=== PATIENT | male | born 1950 | race Caucasian/White ===

== ENCOUNTER → 2023-06-10 13:26 | Outpatient (REF) | payer MEDICARE, SELFPAY ==
[2023-06-10 16:39] LABS: PSA, Total - Diagnostic < 0.06 ng/ml (0.0-4.0)
== END ==
LOC: REG 13:26
PROVIDERS: ATTENDING PHYSICIAN Specialist; FAMILY PHYSICIAN Family Medicine
DX: C61 Malignant neoplasm of prostate (principal)
CPT/HCPCS: 36415; 84153

== ENCOUNTER 2023-07-04 13:59 | Outpatient (RCR) | payer MEDICARE, SELFPAY | END 2023-07-04 23:59 | disposition home or self-care (01) | LOC: RPT 13:59 | PROVIDERS: ATTENDING PHYSICIAN Specialist; FAMILY PHYSICIAN Family Medicine | DX: C61 Malignant neoplasm of prostate (principal); N39.3 Stress incontinence (female) (male); R15.9 Full incontinence of feces; R39.15 Urgency of urination; Z73.6 Limitation of activities due to disability; R15.2 Fecal urgency | CPT/HCPCS: 97162; 97530 ==

== ENCOUNTER 2023-08-14 13:43 | Outpatient (RCR) | payer MEDICARE, SELFPAY | END 2023-08-14 23:59 | disposition home or self-care (01) | LOC: RPT 13:43 | PROVIDERS: ATTENDING PHYSICIAN Specialist; FAMILY PHYSICIAN Family Medicine | DX: N39.3 Stress incontinence (female) (male) (principal); N15.9 Renal tubulo-interstitial disease, unspecified; R15.2 Fecal urgency | CPT/HCPCS: 97112; 97530 ==

== ENCOUNTER 2023-09-27 13:51 | Outpatient (RCR) | payer MEDICARE, SELFPAY | END 2023-09-27 23:59 | disposition home or self-care (01) | LOC: RPT 13:51 | PROVIDERS: ATTENDING PHYSICIAN Specialist; FAMILY PHYSICIAN Family Medicine | DX: N39.46 Mixed incontinence (principal); R15.2 Fecal urgency; C61 Malignant neoplasm of prostate | CPT/HCPCS: 97140; 97530 ==

== ENCOUNTER → 2023-10-16 17:52 | Outpatient (REF) | payer MEDICARE, SELFPAY ==
[2023-10-19 07:06] LABS: HPV, High Risk Not Detected; HPV, High Risk Source Anal
== END ==
LOC: OLAB 17:52
PROVIDERS: ATTENDING PHYSICIAN Physician Assistant
DX: A63.0 Anogenital (venereal) warts (principal)
CPT/HCPCS: 87624; 88112

== ENCOUNTER → 2023-10-18 07:09 | Outpatient (REF) | payer MEDICARE, SELFPAY ==
[2023-10-18 09:41] VITALS: BMI 25.4
== END ==
LOC: SDSPAT 07:09
PROVIDERS: ATTENDING PHYSICIAN Surgery; FAMILY PHYSICIAN Family Medicine
DX: K64.2 Third degree hemorrhoids (principal)
CPT/HCPCS: 93005

== ENCOUNTER 2023-10-21 06:40 | Day surgery (SDC) | payer MEDICARE, SELFPAY ==
[2023-10-21 12:04] VITALS: BP 118/73
[2023-10-21 12:13] VITALS: BMI 25.4
[2023-10-21 12:14] VITALS: BMI 25.4
[2023-10-21 12:22] LABS: Glucose - Point of Care 133 mg/dl (70-99)
[2023-10-21] MEDS: NORMOSOL-R 1000 IV (12:23)
[2023-10-21 14:03] VITALS: BP 102/50
--- NOTE | 2023-10-21 14:09 | W.IMMPOSTOP ---
Surgical Immed Post Op Note
-
Primary Surgeon: Zain Woodson MD
Assisting Surgeon: None
Pre-op Diagnosis: Prolapsing internal hemorrhoid
Post-op Diagnosis: Prolapsing internal hemorrhoid, irritated internal hemorrhoids x 2
Procedure Performed: Closed hemorrhoidectomy, suture hemorrhoidopexy x 2, bilateral pudendal nerve block
Anesthesia Type: MAC with local
Specimen / Cultures: Internal hemorrhoid
Estimated Blood Loss: 10 mL
Complications: None
Operative Findings: Prolapsing internal hemorrhoid in the left posterolateral position�performed surgical excision in a closed fashion, small irritated hemorrhoid in the right anterior position and right anteromedial position�performed suture
ligation and hemorrhoidopexy; on check for hemostasis, slight oozing from the left posterolateral pedicle that was controlled with 3-0 Vicryl in figure of 8 fashion; performed bilateral pudendal nerve block and placed Surgicel within the anal canal;
dressed with gauze and silk tape
--- NOTE | 2023-10-21 14:12 | OR.RPT ---
Operative Report
Operative Report
DATE OF OPERATION: 10/21/2023
SURGEON: Zain Woodson MD
PREOPERATIVE DIAGNOSIS: Prolapsing internal hemorrhoid, irritated internal hemorrhoids x 2
POSTOPERATIVE DIAGNOSIS: Same
OPERATION: Exam under anesthesia, closed hemorrhoidectomy, suture hemorrhoidopexy x2, bilateral pudendal nerve block
ASSISTANTS:
1. None
ANESTHESIA: MAC w/ local
ESTIMATED BLOOD LOSS: 10 mL
FINDINGS:
1. Left posterolateral moderate-sized prolapsing hemorrhoid, performed surgical excision
2. Right anterior and right anteromedial small internal hemorrhoids, performed suture ligation with hemorrhoidopexy
SPECIMENS:
1. Internal hemorrhoid
DRAINS: None
COMPLICATIONS: None
INDICATIONS: The patient is a 73-year-old male who was seen by my PA Janine and myself in the office for rectal bleeding. There was a clear prolapsing hemorrhoid with some superficial changes, likely related to chronic prolapse, but could not rule
out atypia. The hemorrhoid was prolapsed on initial evaluation. It was reducible but then re-prolapsed. Therefore, rubber band ligation would unlikely help. For these reasons, I recommended surgery. I explained that my plan is to perform an
excisional hemorrhoidectomy for the internal hemorrhoid of concern. I may also perform a hemorrhoidopexy or hemorrhoid ligation if the hemorrhoid appears amenable, or if I identify any other concerning internal hemorrhoids. The operation was
discussed with the patient in detail, including the risks, benefits and alternatives. Risks described included, but not limited to, bleeding, infection, urinary retention, damage to nearby structures such as the anal sphincter, fecal incontinence,
anal stenosis, recurrence, and anesthetic risks. The patient states that he does have some fecal urgency with fecal leakage at baseline. I explained that there is the risk of this getting worse. The patient understood and agreed to proceed. The
consent was signed and placed in the chart.
PROCEDURE IN DETAIL: The patient was taken to the operating room and placed on the operating table in prone position. Sequential compression devices were placed bilaterally. Sedation was commenced without complication. Two seat belts were secured
around the legs and upper back. The buttocks were taped apart. The perineum was shaved, prepped and draped in the usual fashion. A time-out was then performed verifying the correct patient, procedure, operative site, positioning, and special
equipment.
Local anesthesia used was a mixture of 60 mL of 0.25% Marcaine without epinephrine (with epinephrine was on backorder) and 0.6 mg of dexamethasone. 40 mL was injected perianally at the beginning of the case. The anorectal exam was performed
assessing all four quadrants of the anal canal using Hill-Vazquez retractors in progressively increasing size. In the left posterolateral quadrant, the prolapsing internal hemorrhoid was identified. This was irritated and oozed with manipulation.
There were also 2 small internal hemorrhoids that appeared irritated but were not bleeding in the right anterior and right anteromedial position. There was a skin tag noted in the anterior midline. No other concerning pathology or lesions were
noted.
I proceeded with an excisional hemorrhoidectomy for the left posterolateral hemorrhoid. I began by grasping the hemorrhoid with 3 clamps and elevating it. The anoderm was incised immediately around the distal aspect of the hemorrhoid. Hemostasis
was achieved with electrocautery. Using Metzenbaum scissors, the hemorrhoid was carefully dissected off of the sphincter complex, avoiding injury to it. A large curved clamp was placed under the hemorrhoid, taking care to avoid clamping any
sphincter. A 15 blade was used to excise the hemorrhoid off the clamp. The hemorrhoid was passed off for specimen. A 3-0 Vicryl was then thrown around the pedicle and tied down, leaving a long tail. The mucosa was reapproximated using this 3-0
Vicryl in a running fashion to the level of the dentate line. This was then run back to the pedicle in a locking fashion. The 3-0 Vicryl was then tied down to the tail around the pedicle, ligating it an additional time. Another 3-0 Vicryl was
used to close the defect of the anoderm in a running fashion. Hemostasis was confirmed.
I elected to proceed with suture ligation and hemorrhoidopexy for the right anterior and right anteromedial hemorrhoids. Using a Hill-Vazquez retractor, the hemorrhoid was exposed. I ligated the pedicle of the hemorrhoid with a 3-0 Vicryl in a
figure-of-8 fashion, leaving the tail long. I took running mucosal bites of the hemorrhoid distally toward the dentate line, stopping 1 cm above the dentate line. I tied this down to the long tail in order to pexy the hemorrhoid. Hemostasis was
confirmed. The second internal hemorrhoid was ligated and pexied in a similar fashion.
The anal canal was irrigated copiously with saline, checking for hemostasis. I noticed a small amount of oozing from the left posterolateral hemorrhoid pedicle, which I controlled with one 3-0 Vicryl in a [id number] fashion. Hemostasis was
now ensured. The remaining 20 mL of local were injected. 5 mL was injected bilaterally for a pudendal nerve block. 10 mL was injected around the surgical site and perianally. The smallest Hill-Vazquez was used to check hemostasis once more, which
was confirmed. Surgicel was placed in the anal canal prophylactically.
At this point, the procedure was complete. All needle, sponge and instrument counts were correct. The patient tolerated the procedure well and was transferred to the recovery room in stable condition with gauze dressing in place secured with silk
tape.
DICTATED BY: Zain Woodson MD
[2023-10-21 14:15] VITALS: BP 96/67
[2023-10-21 14:30] VITALS: BP 117/58
== END 2023-10-21 14:50 | disposition home or self-care (01) ==
LOC: SDS 06:40
PROVIDERS: ATTENDING PHYSICIAN Surgery
DX: K64.8 Other hemorrhoids (principal)
CPT/HCPCS: 46945; 88304; 82962

== ENCOUNTER 2023-11-08 13:54 | Outpatient (RCR) | payer MEDICARE, SELFPAY | END 2023-11-08 15:09 | disposition home or self-care (01) | LOC: RPT 13:54 | PROVIDERS: ATTENDING PHYSICIAN Specialist; FAMILY PHYSICIAN Family Medicine | DX: C61 Malignant neoplasm of prostate (principal); N39.3 Stress incontinence (female) (male); R15.9 Full incontinence of feces; R39.15 Urgency of urination; Z73.6 Limitation of activities due to disability; R15.2 Fecal urgency | CPT/HCPCS: 97530 ==

== ENCOUNTER → 2024-02-25 06:21 | Day surgery (SDC) | payer MEDICARE, SELFPAY ==
[2024-02-25 07:47] LABS: Glucose - Point of Care 123 mg/dl (70-99)
== END ==
LOC: GI 06:21
PROVIDERS: ATTENDING PHYSICIAN Surgery
DX: Z12.11 Encounter for screening for malignant neoplasm of colon (principal); Z86.0100 Personal history of colon polyps, unspecified; K57.30 Diverticulosis of large intestine without perforation or abscess without bleeding; K64.4 Residual hemorrhoidal skin tags; K64.8 Other hemorrhoids; K63.89 Other specified diseases of intestine
CPT/HCPCS: G0105; 82962

== ENCOUNTER → 2024-05-27 12:46 | Outpatient (REF) | payer MEDICARE, SELFPAY | LOC: RCS 12:46 | PROVIDERS: ATTENDING PHYSICIAN Nuclear Medicine Nuclear Cardiology; FAMILY PHYSICIAN Family Medicine | DX: I25.10 Atherosclerotic heart disease of native coronary artery without angina pectoris (principal) | CPT/HCPCS: 93306 ==

== ENCOUNTER → 2024-05-28 11:47 | Outpatient (REF) | payer MEDICARE, SELFPAY | LOC: HWRAD 11:47 | PROVIDERS: ATTENDING PHYSICIAN Internal Medicine Critical Care Medicine; FAMILY PHYSICIAN Family Medicine | DX: R91.1 Solitary pulmonary nodule (principal); C34.31 Malignant neoplasm of lower lobe, right bronchus or lung | CPT/HCPCS: 71250 ==

== ENCOUNTER → 2024-06-03 11:55 | Outpatient (REF) | payer MEDICARE, SELFPAY ==
[2024-06-03 13:30] LABS: Hematocrit 41.1 % (39.0-52.0); Hemoglobin 13.6 g/dL (13.0-18.0); Mean Corp Hgb Conc. 33.1 g/dL (33.0-37.0); Mean Corpuscular Hgb 27.4 pg (27.0-31.0); Mean Corpuscular Volume 82.7 fL (80.0-94.0); Platelet Count 269 10^3/uL (130-400); Red Blood Cell Count 4.97 10^6/uL (4.70-6.10); Red Cell Dist. Width 14.3 % (11.5-14.5); White Blood Cell Count 6.9 10^3/uL (4.8-10.8)
[2024-06-03 15:42] LABS: ALT (SGPT) 46 U/L (0-50); AST (SGOT) 28 U/L (17-59); Albumin 4.5 g/dl (3.5-5.0); Alkaline Phosphatase 73 U/L (38-126); Blood Urea Nitrogen 26 mg/dl (9-20); Calcium 9.2 mg/dl (8.4-10.2); Carbon Dioxide 28 mmol/L (22-30); Chloride 102 mmol/L (98-107); Glucose 154 mg/dl (70-99); Potassium 4.8 mmol/L (3.5-5.1); Sodium 141 mmol/L (135-145); Total Bilirubin 0.3 mg/dl (0.2-1.3); eGFR 57.29
[2024-06-03 16:43] LABS: PSA, Total - Diagnostic < 0.06 ng/ml (0.0-4.0)
== END ==
LOC: REG 11:55
PROVIDERS: ATTENDING PHYSICIAN Specialist
DX: C61 Malignant neoplasm of prostate (principal); N13.30 Unspecified hydronephrosis
CPT/HCPCS: 36415; 80053; 84153; 85027

== ENCOUNTER → 2024-06-10 16:31 | Outpatient (REF) | payer MEDICARE, SELFPAY | LOC: RAD 16:31 | PROVIDERS: ATTENDING PHYSICIAN Specialist; FAMILY PHYSICIAN Family Medicine | DX: C61 Malignant neoplasm of prostate (principal); N13.30 Unspecified hydronephrosis | CPT/HCPCS: 74178; Q9967 ==

== ENCOUNTER → 2024-09-14 15:42 | Outpatient (REF) | payer MEDICARE, SELFPAY | LOC: HWRAD 15:42 | PROVIDERS: ATTENDING PHYSICIAN Specialist; FAMILY PHYSICIAN Family Medicine | DX: N13.30 Unspecified hydronephrosis (principal) | CPT/HCPCS: 76775 ==